=== PATIENT | male | born 1960 | race Caucasian/White ===

== ENCOUNTER → 2016-06-16 | Outpatient (CLI) | payer OTHER ==
[~2016-06-16] MED LIST: ASPI-999 PO; BUDE10.2 IH; CLOP75TA69 PO; LISI1TAB8 PO; NITR0.4T SL; PANT40TA2 PO; PRAV20TA3 PO; VENL150C PO; ZOLP5TAB PO; ZOLP6.252 PO
== END ==
LOC: RAD 14:26
PROVIDERS: ATTEND Internal Medicine Cardiovascular Disease
DX: I10 Essential (primary) hypertension (principal); I25.10 Atherosclerotic heart disease of native coronary artery without angina pectoris; I65.23 Occlusion and stenosis of bilateral carotid arteries; G47.30 Sleep apnea, unspecified; I70.213 Atherosclerosis of native arteries of extremities with intermittent claudication, bilateral legs; Z72.0 Tobacco use
CPT/HCPCS: 93923

== ENCOUNTER 2018-03-28 08:36 | Outpatient (CLI) | payer OTHER ==
[~2018-03-28] VITALS: Ht 180.3 cm; Wt 84.4 kg
[~2018-03-28 08:36] MED LIST changes: +FLUT12AE4 IH; +FOLI1TAB24 PO; +FURO40TA4 PO; +LISI10TA2 PO; +METO-333 PO; +MULT-974 PO; +PANT40TA3 PO; +RANI150T90 PO
[2018-03-28] MEDS ORDERED: PANT40TA3 PO (13:33)
[2018-03-28] MEDS ORDERED: ASPI-586 PO (13:33)
[2018-03-28] MEDS ORDERED: FOLI1TAB24 PO (13:33)
[2018-03-28] MEDS ORDERED: VENL150C PO (13:33)
[2018-03-28] MEDS ORDERED: CLOP75TA28 PO (13:33)
[2018-03-28] MEDS ORDERED: NITR0.4T39 SL (13:33)
[2018-03-28] MEDS ORDERED: LISI10TA2 PO (13:33)
[2018-03-28] MEDS ORDERED: PRAV10TA PO (13:33)
[2018-03-28] MEDS ORDERED: MULT-517 PO (13:33)
[2018-03-28] MEDS ORDERED: METO-333 PO (13:33)
[2018-03-28] MEDS ORDERED: FURO40TA4 PO (13:33)
[2018-03-28] MEDS ORDERED: POTA10TA10 PO (13:33)
== END 2018-03-28 13:34 | disposition home or self-care (01) ==
LOC: PREOP 08:36
PROVIDERS: ATTEND Surgery
DX: Z01.818 Encounter for other preprocedural examination (principal)

== ENCOUNTER 2018-03-30 10:39 | Day surgery (SDC) | payer OTHER ==
[~2018-03-30] VITALS: Ht 180.3 cm; Wt 84.4 kg
[~2018-03-30 10:39] MED LIST changes: +ASPI-586 PO; +CLOP75TA28 PO; +MULT-517 PO; +NITR0.4T39 SL; +POTA10TA10 PO; +PRAV10TA PO
[2018-03-30] MEDS ORDERED: NS IV 500 ML 500 ML IV PRN (10:53)
[2018-03-30 10:58] VITALS: BP 141/88
[2018-03-30] MEDS ORDERED: LIDOCAINE JELLY 2% 6 ML SYRINGE MM PRN (11:00)
[2018-03-30] MEDS ORDERED: HURRICAINE EXT TUBE (BENZOCAINE) XX PRN (11:00)
[2018-03-30] MEDS ORDERED: MIDAZOLAM 2 MG/2 ML (VERSED) VIAL IVP ONE (11:00)
[2018-03-30] MEDS ORDERED: fentaNYL INJECTION 100 MCG/2 ML AMP IVP ONE (11:00)
--- NOTE | 2018-03-30 11:16 | Conscious Sedation/ASA ---
Conscious Sedation Pre-Proced Time 10:30 ASA Score 2 For ASA 3 and 4: Consider anesthesia and medical clearance. Also, for patients with a history of failed moderate sedation consider anesthesia. Airway Lungs Heart ASA score ASA 1: a normal healthy patient ASA 2: a patient with a mild systemic disease (mid diabetes, controlled hypertension, obesity ASA 3: a patient with a severe systemic disease that limits activity (angina , COPD, prior Myocardial infarction) ASA 4: a patient with an incapacitating disease that is a constant threat to life (CHF, renal failure) ASA 5: a moribund patient not expected to survive 24 hrs. (ruptured aneurysm) ASA 6: a declared brain patient whose organs are being harvested. For emergent operations, add the letter E after the classification Mallampati Classification Grade 2 Sedation Plan Analgesia, Amnesia, Plan communicated to team members, Discussed options with patient/fam, Discussed risks with patient/fam The patient is an appropriate candidate to undergo the planned procedure, sedation, and anesthesia. The patient immediately re-assessed prior to indication. ROSANA JONES MD Mar 30, 2018 11:16 am
--- NOTE | 2018-03-30 11:17 | Progress Note-Pre Operative ---
Pre-Operative Progress Note H&P Reviewed The H&P was reviewed, patient examined and no changes noted. Date Seen by Provider: Mar 30, 2018 Time Seen by Provider: 10:30 Date H&P Reviewed: Mar 30, 2018 Time H&P Reviewed: :30 Pre-Operative Diagnosis: GERD, dysphagia, rectal bleed ROSANA JONES MD Mar 30, 2018 11:17 am
[2018-03-30] MEDS ORDERED: HYDROcodone/APAP 5 MG/325 MG (LORTAB) TAB PO PRN (11:30)
[2018-03-30] MEDS ORDERED: morphine INJ 10 MG/ML 1ML (SYR OR VIAL) IV PRN (11:30)
[2018-03-30] MEDS ORDERED: ONDANSETRON 4 MG/2 ML (SDV) Z0FRAN IV PRN (11:30)
[2018-03-30] MEDS ORDERED: ACETAMINOPHEN 325 MG TABLET PO PRN (11:30)
[2018-03-30] MEDS ORDERED: MIDAZOLAM 2 MG/2 ML (VERSED) VIAL ONE ×5 (12:27→13:36)
[2018-03-30] MEDS ORDERED: fentaNYL INJECTION 100 MCG/2 ML AMP ONE ×3 (12:28→13:38)
[2018-03-30] MEDS ORDERED: LIDOCAINE JELLY 2% 6 ML SYRINGE ONE (12:29)
--- NOTE | 2018-03-30 14:26 | Progress Note-Post Operative ---
Post-Operative Progess Note Surgeon (s)/Telephone Solicitor (s) Surgeon ROSANA JONES MD Telephone Solicitor: none Pre-Operative Diagnosis GERD, dysphagia, rectal bleed Post-Operative Diagnosis reflux esophagitis(stage 3), esophageal candidiasis, distal esophageal stricture, moderat-large HH(4cm), mild gastritis. chronic stage 2 ext and int hemorrhoids, moderate sigmoid diverticulosis. Procedure & Operative Findings Date of Procedure 03/30/18 Procedure Performed/Findings EGD with bx and balloon dilatation. Colonoscopy. Anesthesia Type CS Estimated Blood Loss Estimated blood loss (mL): minimal Specimens/Packing Specimens Removed esophageal brushings, GE jxn, antrum. ROSANA JONES MD Mar 30, 2018 2:26 pm
[2018-03-30] MEDS ORDERED: FLUC100T PO (14:27)
--- NOTE | 2018-03-30 14:28 | Discharge Inst-Surgical ---
D/C Lap Instructions-KIDO New, Converted, or Re-Newed RX: RX on Chart Follow Up Appt in 6 weeks Activity as tolerated High Fiber Diet 25g or more per day Avoid Alcohol, Caffeine, Spicy [place] and Acid foods. Drink 64 fluid oz or more of fluids per day. Symptoms to Report: Fever over 101 degree F, Nausea/Vomiting If any problems/questions: Contact your physician or go to Emergency Room ROSANA JONES MD Mar 30, 2018 2:28 pm
[2018-03-30 14:30] VITALS: BP 124/71
[2018-03-30 15:05] VITALS: BP 126/74
[2018-03-30 15:15] VITALS: BP 126/74
--- NOTE | 2018-03-30 17:04 | OPERATIVE REPORT ---
DATE OF SERVICE: 03/30/2018 ATTENDING PRIMARY CARE PHYSICIAN: Dr. Rocha in [place], [place]. PREOPERATIVE DIAGNOSES: Dark tarry stools, hematemesis, dysphagia and screening colonoscopy. POSTOPERATIVE DIAGNOSES: 1. Reflux esophagitis, stage III. 2. Moderate size hiatal hernia 3 to 4cm in size. 3. Ulcerations of the GE junction and esophageal stricture. 4. Esophageal candidiasis 5. Moderate gastritis, normal duodenum. 6. Chronic stage II external and internal hemorrhoids. 7. Moderate sigmoid diverticulosis. PROCEDURE: 1. EGD with biopsy and balloon dilatation. 2. Colonoscopy. SURGEON: Rosana Jones MD ANESTHESIA: Conscious sedation. ESTIMATED BLOOD LOSS: Minimal. FINDINGS: 1. EGD: Reflux esophagitis stage III with mucosal ulceration and a white covering consistent with an esophageal candidiasis. There was also a distal esophageal stricture. There was a significant size hiatal hernia approximately 3 to 4 cm in size, moderate severity gastritis and normal duodenum. No active bleeding identified. 2. Colonoscopy: Chronic stage II external and internal hemorrhoids. Moderate sigmoid diverticulosis with no mucosal inflammatory changes indicate any active diverticulitis. The remainder of the colon was normal. DISPOSITION: The patient tolerated the procedure well. INDICATIONS: The patient is a 58-year-old male known to us. We had initially seen him in 06/2015 for hematemesis and dark tarry stools. At that time, he underwent an EGD and found to have a reflux esophagitis stage III with old clotted blood as well as a moderate size hiatal hernia 3 cm in size. Since that time, he reports that he has developed recurrent episodes of black tarry stools and has had issues with hematemesis as well. He was scheduled to have an EGD; however, he did end up leaving prematurely. He is currently on Protonix; however, reports in the past 6 months, he has also had dysphagia for solid foods. He has not had a colonoscopy up to this point in his life. He does not report any family history of colon cancer. DESCRIPTION OF PROCEDURE: The patient was brought to the endoscopy suite, laid in left lateral decubitus position. After adequate IV pain and sedating medications and conscious sedation anesthesia, the mouthpiece was applied. The endoscope was placed in the mouth, visualizing the pharynx and hypopharyngeal region. Vocal cords, epiglottis and vallecula identified and appeared to be normal. The endoscope was then intubated into the esophageal opening and esophagus insufflated. The endoscope was then advanced to the first, second and third portion of the esophagus at the level of the GE junction. There was a significant reflux esophagitis stage III with mucosal ulcerations. No active bleeding. There was also a whitish plaque within the raw surfaces, which may indicate an esophageal candidiasis as well. There was also distal esophageal stricture. A biopsy was taken for Cleaning's esophagus and brushings taken for AFB and fungal. This region was also dilated to 4 atmospheres of pressure with 16.5 mm in circumferential diameter until moderate resistance identified. The balloon was then desufflated and removed with visualization of no mucosal tears as well as no bleeding. The endoscope was then advanced into the stomach visualizing a hiatal hernia approximately 4 cm in size. This appeared to be the root of his symptoms. He does have a moderate gastritis; however, no formal ulcerations, polyps or neoplasms as well as no active bleeding. A biopsy was taken of the antrum with forceps for H. pylori. The endoscope was then advanced to the pylorus and then to the first and second portion of the duodenum, which appeared normal with no distal obstructions. The endoscope was then slowly withdrawn while taking a second look and suctioning residual air with no additional findings. The patient tolerated this portion of the procedure well. We will await the biopsy results; however, he has a significant reflux esophagitis as well as esophageal candidiasis, which we will treat with Diflucan. He also does have a significant size hiatal hernia, which appears to be a type 3 hernia. He does have risk factors including smoking history for 50 pack years as well as previous alcohol. If he can stay medically compliant, he may be a candidate for hiatal hernia repair and antireflux procedure, but before this we would proceed with esophageal manometric studies to rule out an esophageal dysmotility disorder. Under the same anesthesia, we then proceed with colonoscopy portion of the procedure. A digital rectal examination was performed, which revealed mild chronic stage II external and internal hemorrhoids, not actively edematous or inflamed and no bleeding. Normal sphincter tone was felt and there were no palpable masses. The prostate gland was palpable and appeared normal. The endoscope was then intubated to the anus and rectum gently insufflated. The endoscope was then advanced to the [facility] in the rectum with no polyps or any neoplasms identified. We then proceeded with the sigmoid colon where a moderate sigmoid diverticulosis is identified. There were no mucosal inflammatory changes to indicate any active diverticulitis. The endoscope was then advanced through the remainder of the descending, transverse and ascending colon to the cecum. These segments were normal. There were no polyps or any neoplasms identified. We will have him continue with medical management with high fiber diet with at least 30 grams of fiber per day as well as copious amounts of water to promote soft stools on a daily basis. He does not need another colonoscopy for 10 years; however, sooner if he becomes symptomatic. Job ID: [id number] DocumentID: [id number] Dictated Date: 03/30/2018 14:02:31 Bromination Equipment Operator Date: 03/30/2018 17:04:06 Dictated By: ROSANA JONES MD MTDD
== END 2018-03-30 15:15 | disposition home or self-care (01) ==
LOC: ENDO 10:39
PROVIDERS: ATTEND Surgery
DX: K21.0 Gastro-esophageal reflux disease with esophagitis (principal); K44.9 Diaphragmatic hernia without obstruction or gangrene; K25.9 Gastric ulcer, unspecified as acute or chronic, without hemorrhage or perforation; B37.81 Candidal esophagitis; K29.70 Gastritis, unspecified, without bleeding; K64.1 Second degree hemorrhoids; K57.30 Diverticulosis of large intestine without perforation or abscess without bleeding; K22.2 Esophageal obstruction; I25.10 Atherosclerotic heart disease of native coronary artery without angina pectoris; I10 Essential (primary) hypertension; E78.00 Pure hypercholesterolemia, unspecified; J44.9 Chronic obstructive pulmonary disease, unspecified; F32.9 Major depressive disorder, single episode, unspecified; F17.210 Nicotine dependence, cigarettes, uncomplicated; Z79.82 Long term (current) use of aspirin; Z79.899 Other long term (current) drug therapy
CPT/HCPCS: 87101; 87116